=== PATIENT | female | born 1965 | race Caucasian/White ===

== ENCOUNTER 2018-02-10 08:21 | Outpatient (CLI) | payer BC ==
--- NOTE | 2018-02-10 09:31 | RAD ---
AIR CONTRAST UPPER GI: History: Dysphagia. Chest pain. Prior hernia surgery. FINDINGS: City Secretary chest radiograph shows small gas pocket just to the right of midline at the level of the diaphr agm. Air contrast upper GI shows post-operative changes at the GE junction consistent with prior meso fund oplication. A small hernia lies immediately to the right of the GE junction and fundoplication. There is a small amount of gastroesophageal reflux and prominent tertiary contractions of the esophagus. A 12 mm barium tablet showed approximately 5 minute holdup at the GE junction. The esophagus and stomach otherwise have a normal appearance. Visualized proximal small bowel is unre markable. IMPRESSION: 1. Small recurrent hiatal hernia just to the right of the fundoplication. 2. Persistent gastroesophageal reflux and prominent tertiary contractions of the esophagus. POS: [facility]
== END 2018-02-10 08:22 | disposition home or self-care (01) ==
LOC: RAD 08:21
PROVIDERS: ATTEND Specialist
DX: R13.10 Dysphagia, unspecified (principal); K44.9 Diaphragmatic hernia without obstruction or gangrene; K21.9 Gastro-esophageal reflux disease without esophagitis; K22.8 Other specified diseases of esophagus
CPT/HCPCS: 74247

== ENCOUNTER 2018-03-03 07:26 | Day surgery (SDC) | payer BC ==
[2018-03-02 15:23] VITALS: BMI 26.4
[2018-03-03] MEDS ORDERED: PROPOFOL 200 MG/20 ML VIAL ONE (16:58)
--- NOTE | 2018-03-03 17:23 | OP ---
DATE OF PROCEDURE: 03/03/2018 PROCEDURE PERFORMED: Esophagogastroduodenoscopy with balloon dilation and Maldonado dilation. PREMEDICATIONS: Given by Anesthesiology Department. PREPROCEDURE DIAGNOSES: 1. Dysphagia. 2. History of fundoplication with barium swallow demonstrating barium tablet hanging up at gastroesophageal junction. POSTOPERATIVE DIAGNOSES: 1. Small herniation of fundoplication. 2. Otherwise normal upper endoscopy. 3. Status post gastroesophageal junction, balloon dilation with 18-mm balloon and esophageal dilation with 54-Ivorian Maldonado dilator. PROCEDURE IN DETAIL: Written consents were obtained prior to procedure. After adequate sedation, forward viewing endoscope was advanced into the stomach under direct vision into the second portion of the duodenum. The duodenum appeared normal. The pylorus was patent. The gastric antrum, body, fundus, and cardia appeared normal. Retroflexion demonstrated a 360 degree fundoplication that appears to be intact. However, there was a small herniation of the fundoplication causing a small hernia sac. The Z-line was 35 cm. The mucosa appeared normal. The entire esophageal lumen appeared normal. Balloon dilation using 18 mm balloon was performed of 3 inflations lasting for 1 minute duration each. Final dilation was performed of the entire esophagus using a 54-Ivorian Maldonado. The patient tolerated the procedure well without any complications. ASSESSMENT: 1. Intact fundoplication with upward herniation of the wrap. 2. Status post gastroesophageal junction dilation with 18-mm balloon and esophageal dilation with 54-Ivorian Maldonado. PLAN: We will follow up to monitor swallowing progress. Job ID: [id number] MTDD
== END 2018-03-03 11:50 | disposition home or self-care (01) ==
LOC: SDC 07:26
PROVIDERS: ATTEND Internal Medicine Gastroenterology
PROC: 0D758ZZ Dilation of Esophagus, Via Natural or Artificial Opening Endoscopic (ICD-10-PCS; principal; 2018-03-03)
DX: R13.10 Dysphagia, unspecified (principal); K91.89 Other postprocedural complications and disorders of digestive system; K22.70 Barrett's esophagus without dysplasia; F99 Mental disorder, not otherwise specified; Z79.899 Other long term (current) drug therapy; Z88.1 Allergy status to other antibiotic agents; Z88.2 Allergy status to sulfonamides; Z88.8 Allergy status to other drugs, medicaments and biological substances; Z91.030 Bee allergy status; Z91.038 Other insect allergy status
CPT/HCPCS: J2704

== ENCOUNTER 2018-03-19 08:20 | Outpatient (CLI) | payer BC ==
--- NOTE | 2018-03-19 11:19 | RAD ---
BARIUM SWALLOW ESOPHAGRAM: HISTORY: Dysphagia. Recent esophageal dilatation. EXPOSURE: 2.1 minutes. 6.764 Gy per cm2. COMPARISON: 02/10/2018 FINDINGS: Initial spd manager radiograph demonstrates cervical fusion changes, incompletely evaluated. Normal cardia c silhouette. Pulmonary vessels and hilum are normal. Costophrenic angles are clear. No mass. No consolidation. Stable calcific granuloma in the right lung base. No pneumothorax or osseous abnorma lity. The cervical and thoracic esophagus have an overall normal caliber. There is a small diverticulum no kylie along the left aspect of the cervical esophagus, at approximately the C4-C5 level. There is rede monstration of a paraesophageal hiatal hernia. Intermittent reflux and tertiary contractions are red emonstrated. A standard, 13 mm barium tablet was administered and does appear to get hung up at the level of the G E junction. IMPRESSION: 1. Small diverticulum involving the left aspect of the cervical esophagus, at the C4-C5 level. 2. Redemonstration of a hiatal hernia, just to the right of the gastroesophageal junction/fundoplica tion. 3. Barium tablet does appear to get hung up at the gastroesophageal junction. 4. Persistent reflux and tertiary contractions of the esophagus. POS: [facility]
== END 2018-03-19 08:21 | disposition home or self-care (01) ==
LOC: RAD 08:20
PROVIDERS: ATTEND Internal Medicine Gastroenterology
DX: R13.10 Dysphagia, unspecified (principal); K57.10 Diverticulosis of small intestine without perforation or abscess without bleeding; K44.9 Diaphragmatic hernia without obstruction or gangrene; K21.9 Gastro-esophageal reflux disease without esophagitis; K22.8 Other specified diseases of esophagus
CPT/HCPCS: 74220

== ENCOUNTER 2018-05-20 16:13 | Outpatient (CLI) | payer BC ==
[2018-05-20 17:08] LABS: #Basophils 0.1 thou/uL (0.0-0.2); #Lymphocytes 2.2 thou/uL (1.20-3.40); #Monocytes 0.5 thou/uL (0.11-0.59); %Basophils 0.9 % (0.0-1.0); %Eosinophils 0.3 % (0.0-10.0); %Lymphocytes 32.3 % (21.0-51.0); %Monocytes 7.8 % (0.0-10.0); %Neutrophils 58.6 % (42.0-75.0); Hemoglobin 13.8 g/dL (12.0-16.0); Mean Corpuscular HGB CONC 32.8 g/dL (32.0-36.0); Mean Corpuscular Hemoglobin 30.4 pg (27.0-31.0); Mean Corpuscular Volume 92.6 fL (78.0-98.0); Mean Platelet Volume 7.3 fL (7.4-10.4); Platelet Count 274 thou/uL (130-400); Red Blood Cell (RBC) Count 4.55 mill/uL (4.20-5.40); White Blood Cell (WBC) Count 6.8 thou/uL (4.8-10.8)
[2018-05-20 17:34] LABS: Anion Gap 13 mmol/L (10-20); BUN (Urea Nitrogen) 15 mg/dL (9.8-20.1); Calc. Creatinine Clearance 0 mL/min (70-130); Carbon Dioxide 29 mmol/L (22-29); Chloride 102 mmol/L (98-107); Estimated GFR-MDRD 69; Glucose 90 mg/dL (70-105); Potassium 3.7 mmol/L (3.5-5.1); Sodium 140 mmol/L (136-145)
--- NOTE | 2018-05-21 16:59 | EKG ---
Test Reason : Blood Pressure : / mmHG Vent. Rate : 074 BPM Atrial Rate : 074 BPM P-R Int : 172 ms QRS Dur : 136 ms QT Int : 404 ms P-R-T Axes : 025 014 020 degrees QTc Int : 448 ms Normal sinus rhythm Right bundle branch block Abnormal ECG Confirmed by BRENDA ARDON ([id number]) on 05/21/2018 4:59:32 PM Referred By: FREEMAN Confirmed By:BRENDA ARDON
== END 2018-05-20 16:14 | disposition home or self-care (01) ==
LOC: LABBT 16:13
PROVIDERS: ATTEND Specialist
DX: Z01.818 Encounter for other preprocedural examination (principal); K44.9 Diaphragmatic hernia without obstruction or gangrene; R13.10 Dysphagia, unspecified
CPT/HCPCS: 80048; 85025; 93005; 93010

== ENCOUNTER 2018-05-27 07:26 | Inpatient (IN) | payer BC ==
[2018-05-20 16:21] VITALS: BMI 25.5
[2018-05-27] MEDS ORDERED: Ketorolac Tromethamine 30 MG/ML VIAL ONE (08:37)
[2018-05-27] MEDS ORDERED: Bupivacaine/Epinephrine 0.25% 30 ML VIAL ONE (09:08)
[2018-05-27] MEDS ORDERED: Fentanyl 250 MCG/5 ML VIAL ONE (09:16)
[2018-05-27] MEDS ORDERED: Fentanyl 100 MCG/2 ML VIAL ONE ×3 (13:03→14:56)
[2018-05-27] MEDS ORDERED: Promethazine HCl 25 MG/ML VIAL ONE (13:03)
[2018-05-27] MEDS ORDERED: D5 1/2 NS w/20 mEq KCL 1,000 ML ONE (13:39)
[2018-05-27] MEDS ORDERED: Dexamethasone 20 MG/5 ML VIAL ONE (14:24)
[2018-05-27] MEDS ORDERED: Ondansetron PF 4 MG/2 ML Vial ONE (14:24)
[2018-05-27] MEDS ORDERED: Glycopyrrolate 0.2 MG/ML 5 ML SYRINGE ONE (14:24)
[2018-05-27] MEDS ORDERED: Rocuronium Bromide 10 MG/ML (10ML VIAL) ONE (14:24)
[2018-05-27] MEDS ORDERED: PROPOFOL 200 MG/20 ML VIAL ONE (14:24)
[2018-05-27] MEDS ORDERED: PHENYLEPHRINE-NS 100 MCG/ML 10 ML SYRINGE ONE (14:24)
[2018-05-27] MEDS ORDERED: Promethazine HCl 25 MG/ML VIAL IM PRN (15:40)
[2018-05-27] MEDS ORDERED: Morphine 4 MG/ML VIAL SLOW IVP PRN (15:40)
[2018-05-27] MEDS ORDERED: hydrALAZINE 20 MG/ML VIAL SLOW IVP PRN (15:40)
[2018-05-27] MEDS: D5 1/2 NS w/20 mEq KCL 1,000 ML IV SCH (16:04)
[2018-05-27] MEDS: Morphine 4 MG/ML VIAL SLOW IVP PRN ×2 (16:53→19:50)
[2018-05-27] MEDS ORDERED: CYCLOBENZAPRINE 10 MG PO PRN (17:43)
[2018-05-27] MEDS ORDERED: NAPROXEN SOD PO PRN (18:00)
[2018-05-27] MEDS ORDERED: SUMATRIPTAN SUCC PO PRN (18:00)
[2018-05-27] MEDS: Ketorolac Tromethamine 30 MG/ML VIAL IVP SCH ×2 (18:05→23:09)
[2018-05-27] MEDS: Acetaminophen 1,000 MG in Premix Bag 1 BAG IVPB SCH ×2 (18:05→23:09)
[2018-05-27] MEDS: Famotidine/PF 20 mg/2ml Vial SLOW IVP SCH (20:00)
[2018-05-27] MEDS: Famotidine 20 MG TAB PO SCH (20:00)
[2018-05-27] MEDS ORDERED: Montelukast Sodium 10 mg Tablet PO SCH (21:00)
[2018-05-27] MEDS ORDERED: Enoxaparin Sodium 40 MG/0.4 ML SYRINGE SC SCH (21:00)
[2018-05-27] MEDS ORDERED: buPROPion 75 MG TAB PO SCH (21:00)
[2018-05-27] MEDS ORDERED: MONTELUKAST SODIUM 10 MG PO SCH (21:00)
[2018-05-27] MEDS ORDERED: ATORVASTATIN 10 MG PO SCH ×2 (21:00)
[2018-05-27] MEDS ORDERED: lamoTRIgine 100 MG TAB PO SCH (21:00)
[2018-05-27] MEDS ORDERED: MELATONIN 10 MG PO SCH (21:00)
[2018-05-27] MEDS: LAMOTRIGINE 200 MG PO SCH (21:53)
[2018-05-27] MEDS: BUPROPION 150 MG PO SCH (21:55)
[2018-05-27] MEDS: DOCUSATE SODIUM 100 MG PO SCH (21:57)
[2018-05-27] MEDS: Ondansetron PF 4 MG/2 ML Vial IVP PRN (22:14)
[2018-05-28] MEDS: D5 1/2 NS w/20 mEq KCL 1,000 ML IV SCH ×2 (00:25→08:21)
[2018-05-28] MEDS: HYDROcodone/Acetaminophen 7.5/325 mg Tablet PO PRN ×2 (02:11→13:22)
[2018-05-28] MEDS: Acetaminophen 1,000 MG in Premix Bag 1 BAG IVPB SCH ×2 (05:26→12:40)
[2018-05-28] MEDS: Ketorolac Tromethamine 30 MG/ML VIAL IVP SCH ×2 (05:26→12:41)
[2018-05-28 05:52] LABS: #Monocytes 1.2 thou/uL (0.11-0.59); #Neutrophils 10.1 thou/uL (1.40-6.50); %Basophils 0.2 % (0.0-1.0); %Eosinophils 0.2 % (0.0-10.0); %Lymphocytes 15.3 % (21.0-51.0); %Monocytes 8.6 % (0.0-10.0); %Neutrophils 75.6 % (42.0-75.0); Hemoglobin 12.6 g/dL (12.0-16.0); Mean Corpuscular HGB CONC 32.4 g/dL (32.0-36.0); Mean Corpuscular Hemoglobin 29.1 pg (27.0-31.0); Mean Corpuscular Volume 89.8 fL (78.0-98.0); Mean Platelet Volume 9.3 fL (7.4-10.4); Platelet Count 172 thou/uL (130-400); RBC Distribution Width 11.9 % (11.5-14.5); Red Blood Cell (RBC) Count 4.34 mill/uL (4.20-5.40); White Blood Cell (WBC) Count 13.3 thou/uL (4.8-10.8)
[2018-05-28 06:04] LABS: Anion Gap 14 mmol/L (10-20); BUN (Urea Nitrogen) 7 mg/dL (9.8-20.1); Calc. Creatinine Clearance 90 mL/min (70-130); Calcium 9.3 mg/dL (7.8-10.44); Carbon Dioxide 26 mmol/L (22-29); Chloride 102 mmol/L (98-107); Estimated GFR-MDRD Greater than 90; Glucose 141 mg/dL (70-105); Potassium 4.7 mmol/L (3.5-5.1); Sodium 137 mmol/L (136-145)
[2018-05-28] MEDS: Ondansetron PF 4 MG/2 ML Vial IVP PRN (06:13)
[2018-05-28] MEDS ORDERED: Loratadine 10 MG TAB PO SCH (09:00)
[2018-05-28] MEDS ORDERED: TRIAMTERENE PO SCH (09:00)
[2018-05-28] MEDS ORDERED: LORATADINE 10 MG PO SCH (09:00)
[2018-05-28] MEDS ORDERED: HCTZ PO SCH (09:00)
[2018-05-28] MEDS ORDERED: Triamterene/Hydrochlorothiazide 37.5 mg/25 mg Tablet PO SCH (09:00)
[2018-05-28] MEDS ORDERED: BIOTIN 10,000 MCG PO SCH (09:00)
[2018-05-28] MEDS: Famotidine 20 MG TAB PO SCH (09:40)
[2018-05-28] MEDS: DOCUSATE SODIUM 100 MG PO SCH (09:42)
[2018-05-28] MEDS: LAMOTRIGINE 200 MG PO SCH (09:42)
[2018-05-28] MEDS: BUPROPION 150 MG PO SCH (09:43)
[2018-05-28] MEDS: Famotidine/PF 20 mg/2ml Vial SLOW IVP SCH (09:45)
[2018-05-28 11:38] VITALS: BP 108/68; TEMP 97.8
--- NOTE | 2018-05-31 10:38 | OP ---
DATE OF PROCEDURE: 05/27/2018 PREOPERATIVE DIAGNOSES: Recurrent hiatal hernia with dysphagia. POSTOPERATIVE DIAGNOSES: Recurrent hiatal hernia with dysphagia (with intact wrap but wrap herniated up into the mediastinum). OPERATION PERFORMED: Repair of recurrent hiatal hernia with Quin fundoplication, mesh placement, and intraabdominal gastropexy. ANESTHESIA: General endotracheal. INDICATIONS: The patient is a 52-year-old female who had a large hiatal hernia repaired 6 years ago. Within the past 6 months, she has had recurrent symptoms and develops dysphagia. Endoscopy and contrast studies revealed evidence of recurrent hiatal hernia. She is taken to the operating room for repair of this. DESCRIPTION OF OPERATION: Informed consent was obtained. The patient was taken to the operating room where general endotracheal anesthesia was obtained with the patient in the supine position. Abdomen was prepped with ChloraPrep and draped in sterile fashion. Local anesthetic was infiltrated using 0.25% Marcaine with epinephrine at each incision site. A 5 mm supraumbilical incision was created at the prior incision site. Veress needle was passed into the abdominal cavity and pneumoperitoneum established with carbon dioxide up to a pressure of 15 mmHg. A 5 mm trocar port was passed through this incision and laparoscopic camera was passed through this port. Four additional ports were placed, all in the same places at the previous operation. These included bilateral subcostal 5 mm ports, a right epigastric 5 mm port and the left gparlotdsp73 mm port. The triangle retractor was placed through the right port and used to elevate the left lobe of the liver using the Robb's Arm. A recurrent hiatal hernia was easily visualized. There was surprisingly little scar tissue under the liver or at the hiatus. I was able to easily visualize the herniated tissue. Using meticulous dissection, I took down all adhesions between the stomach and the hiatus circumferentially at the level of the hernia. I then dissected up into the mediastinum, freeing the distal esophagus. The wrap appeared to be intact. The wrap was fully withdrawn into the abdominal cavity. The hernia sac primarily on the right side of the esophagus was excised. A size 50 bougie was placed through the esophagus into the stomach. With this in place, I decided to place one additional suture on the raptor to strengthen it with the inferior aspect. This was a gastrogastric suture, placed with 0 Bralon and secured with the tie knot. I then turned my attention to the hiatus. The hiatal defect was easily closed with approximation of the posterior crura with 2 interrupted sutures of 0 Bralon. This produced a nice approximation of the crura around the esophagus. I then obtained a sheet of pliable Strattice mesh. This was trimmed to a size of 6 x 4 cm and a curved notch was cut out superior aspect to allow for placement of the esophagus. The mesh was passed and positioned nicely around the posterior aspect of the esophagus. Therefore both sides of the esophagus. I sutured this initially with three sutures of 0 Bralon, one of these on each side of the hiatus sutured to the upper medial aspect of the mesh. I then placed one of the posterior aspect of the esophagus to the mesh cut out segment. Finally, Tisseel fibrin glue and placed this on the posterior aspect of the mesh bilaterally and on the inferior aspect to further secure it to the crura. The wrap was then secured to the hiatus at the 10:30 and 1:30 radian with simple interrupted sutures of 0 Bralon as collar suture fixation. This was to present wrap rotation. The area was expected and found to all be very appropriately approximated. There has never been any blood loss or complication with this portion. To further augment the procedure, I decided to perform an intraabdominal gastropexy. The site was selected on the left anterior abdominal wall and an 0 Ethibond suture was passed through the fascia using a GraNee needle and this was passed through a segment of the anterior surface of the greater curvature of the stomach at approximately mid stomach. GraNee needle so as to give a transfascial fixation. I decided to further augment this with a single suture that was placed intra-abdominally between the same segment of the stomach and the anterior aspect of the peritoneal and posterior fascia. This knot was tied extracorporeally. The gastropexy appeared to be intact and there was no blood loss at this location either. The fascial defect of the 11 mm port site was closed with 0 Vicryl suture using a GraNee needle. The triangle retractor was removed. Each port was removed under direct vision. Pneumoperitoneum was carefully evacuated. 0.25% Marcaine with epinephrine was infiltrated at each port site. Skin edges were approximated with 4-0 Monocryl subcuticular suture. Dermabond was placed externally. There were no complications. The patient tolerated the procedure well and was taken to recovery room in stable condition. Job ID: [id number]
== END 2018-05-28 14:45 | disposition home or self-care (01) | DRG 328 ==
LOC: SDC 07:26 → SURG A 15:25 → OBSVTOIN 15:25
PROVIDERS: ADMIT Specialist; ATTEND Specialist
PROC: 0BUT4JZ Supplement Diaphragm with Synthetic Substitute, Percutaneous Endoscopic Approach (ICD-10-PCS; principal; 2018-05-27)
PROC: 0DV44ZZ Restriction of Esophagogastric Junction, Percutaneous Endoscopic Approach (ICD-10-PCS; 2018-05-27)
DX: K44.9 Diaphragmatic hernia without obstruction or gangrene (principal); R13.10 Dysphagia, unspecified; F41.9 Anxiety disorder, unspecified; F31.9 Bipolar disorder, unspecified; Z96.652 Presence of left artificial knee joint; Z88.1 Allergy status to other antibiotic agents; Z88.8 Allergy status to other drugs, medicaments and biological substances; Z98.1 Arthrodesis status; Z90.710 Acquired absence of both cervix and uterus
CPT/HCPCS: 36415; 80048; 85025; J0131; J1100; J1650; J1885; J2270; J2405; J2550; J2704; J3010; Q4130

== ENCOUNTER 2019-05-18 05:22 | Observation (INO) | payer BC ==
[2019-05-18 05:46] LABS: #Lymphocytes 1.9 thou/uL (1.20-3.40); #Monocytes 0.6 thou/uL (0.11-0.59); #Neutrophils 3.9 thou/uL (1.40-6.50); %Basophils 0.6 % (0.0-1.0); %Eosinophils 0.2 % (0.0-10.0); %Lymphocytes 30.1 % (21.0-51.0); %Monocytes 8.7 % (0.0-10.0); %Neutrophils 60.3 % (42.0-75.0); Hemoglobin 14.1 g/dL (12.0-16.0); Mean Corpuscular HGB CONC 31.4 g/dL (32.0-36.0); Mean Corpuscular Hemoglobin 28.6 pg (27.0-31.0); Mean Corpuscular Volume 91.1 fL (78.0-98.0); Mean Platelet Volume 7.4 fL (7.4-10.4); Platelet Count 310 thou/uL (130-400); RBC Distribution Width 12.1 % (11.5-14.5); Red Blood Cell (RBC) Count 4.92 mill/uL (4.20-5.40); White Blood Cell (WBC) Count 6.4 thou/uL (4.8-10.8)
[2019-05-18 06:07] LABS: ALT (SGPT) 26 U/L (8-55); AST (SGOT) 20 U/L (5-34); Albumin 4.6 g/dL (3.5-5.0); Alkaline Phosphatase 121 U/L (40-110); Anion Gap 13 mmol/L (10-20); BUN (Urea Nitrogen) 15 mg/dL (9.8-20.1); Bilirubin, Total 0.3 mg/dL (0.2-1.2); CK (CPK) 78 U/L (29-168); Calc. Creatinine Clearance 0 mL/min (70-130); Calcium 9.6 mg/dL (7.8-10.44); Carbon Dioxide 30 mmol/L (22-29); Chloride 99 mmol/L (98-107); Estimated GFR-MDRD 73; Globulin 2.5 g/dL (2.4-3.5); Glucose 112 mg/dL (70-105); Lipase 32 U/L (8-78); Potassium 3.3 mmol/L (3.5-5.1); Protein, Total 7.1 g/dL (6.0-8.3); Sodium 139 mmol/L (136-145)
[2019-05-18] MEDS ORDERED: Aspirin 325 MG TAB ONE (06:08)
--- NOTE | 2019-05-18 08:01 | ULT ---
GALLBLADDER ULTRASOUND: COMPARISON: None. HISTORY: Epigastric abdominal pain radiating to the back. TECHNIQUE: Multiplanar, joe scale, and color Doppler images were obtained in a right upper quadrant abdominal u ltrasound. FINDINGS: The liver contains anechoic cysts measuring up to 1.7 cm in size. No intrahepatic biliary dilatation is seen. The liver demonstrates normal echogenicity. The gallbladder is normal without stones, sludge, gallbladder wall thickening, or pericholecystic flu id. The common bile duct is enlarged measuring 8 mm. The pancreas could not be visualized. The right kidney is normal in echogenicity without hydronephro sis or calculus and measures 9.1 cm in length. IMPRESSION: 1. Hepatic cysts. 2. Nonspecific enlargement of the common bile duct without evidence of cholelithiasis. POS: [facility]
[2019-05-18] MEDS ORDERED: Nitroglycerin 0.4 MG TAB (25 Tab Bottle) PO PRN (08:40)
--- NOTE | 2019-05-18 08:44 | RAD ---
CHEST 1 VIEW: HISTORY: Chest pain. COMPARISON: None. FINDINGS: Lungs are clear. No pneumothorax or effusion. Cardiac silhouette and mediastinal contours are withi n normal limits. There is likely gaseous distention of the stomach and much less likely free air und er the left hemidiaphragm. IMPRESSION: No acute intrathoracic abnormality. POS: [facility]
--- NOTE | 2019-05-18 08:56 | PDOC.HHP ---
Hospitalist HPI - History of Present Illness Chest pain History of Present Illness: PCP: Dr. Jamie Jang The patient is a 53/F with PMH significant for HLD presents for above complaint. Patient reports waking up and feeling nauseated around 0200. She ambulated to the bathroom and dry heaved. She then developed chest pain, radiating from her back to her mid sternum, describes as "vice-like", 8/10, exercerbated and relieved by nothing. She trialed a heating pad with no improvement of symptoms. She reports some associated SOB. She denies any heart palpitations, light headedness or diaphoresis. She denies any abdominal pain, pyrosis or vomiting. For this reason, she had her friend drive her to the ER. ED Course: EKG NSR with RBBB Trop negative CXR unremarkable RUQ US unremarkable Given ASA 325 mg Hospitalist ROS - Review of Systems Constitutional: denies: fever, chills, sweats, weakness, malaise, other Cardiovascular: reports: chest pain. denies: palpitations, edema, light headedness Gastrointestinal: reports: nausea. denies: vomiting, abdominal pain, diarrhea Genitourinary: denies: dysuria, frequency, hematuria Musculoskeletal: reports: back pain Skin: denies: rash, bruising Neurological: denies: weakness, incoordination, change in speech Hospitalist History - Past Medical History Source: patient Cardiac: reports: Hyperlipidemia Pulmonary: reports: no pertinent history TRIMMER HAND: reports: Migraine Gastrointestinal: reports: no pertinent history Heme/Onc: reports: no pertinent history Hepatobiliary: reports: no pertinent history Psych: reports: Bipolar Musculoskeletal: reports: Other (Cervical DJD) Rheumatologic: reports: no pertinent history Infectious Disease: reports: no pertinent history ENT: reports: Allergic rhinitis Renal/: reports: no pertinent history Endocrine: reports: no pertinent history Dermatology: reports: no pertinent history - Past Surgical History Past Surgical History: reports: Hysterectomy, Hernia Repair, Other (Cervical fusion) - Family History Family History: reports: no pertinent history - Social History Smoking Status: Never smoker Alcohol: reports: None Drugs: reports: none Living Situation: With Family Occupation: lives in [place] with spouse, works for [employer] Activity level: independent ambulation - Exam General Appearance: NAD, awake alert Heart: RRR, no murmur, no gallops, no rubs, normal peripheral pulses Respiratory: CTAB, no wheezes, no rales, no ronchi Gastrointestinal: soft, non-tender, non-distended, normal bowel sounds, no guarding, no rigidity Extremities: no cyanosis, no clubbing, no edema Extremities - other findings: UE/LE pulses equal bilaterally Skin: no lesions, no rashes Musculoskeletal: normal tone, normal strength Psychiatric: normal affect, A&O x 3 Hospitalist Results - Labs Result Diagrams: 05/18/19 05:30 05/18/19 05:30 Lab results: WBC 6.4 thou/uL (4.8-10.8) 05/18/19 05:30 Hgb 14.1 g/dL (12.0-16.0) 05/18/19 05:30 Hct 44.9 % (36.0-47.0) 05/18/19 05:30 MCV 91.1 fL (78.0-98.0) 05/18/19 05:30 Plt Count 310 thou/uL (130-400) 05/18/19 05:30 Neutrophils % 60.3 % (42.0-75.0) 05/18/19 05:30 Sodium 139 mmol/L (136-145) 05/18/19 05:30 Potassium 3.3 mmol/L (3.5-5.1) L 05/18/19 05:30 Chloride 99 mmol/L (98-107) 05/18/19 05:30 Carbon Dioxide 30 mmol/L (22-29) H 05/18/19 05:30 BUN 15 mg/dL (9.8-20.1) 05/18/19 05:30 Creatinine 0.82 mg/dL (0.6-1.1) 05/18/19 05:30 Glucose 112 mg/dL (70-105) H 05/18/19 05:30 Calcium 9.6 mg/dL (7.8-10.44) 05/18/19 05:30 Total Bilirubin 0.3 mg/dL (0.2-1.2) 05/18/19 05:30 AST 20 U/L (5-34) 05/18/19 05:30 ALT 26 U/L (8-55) 05/18/19 05:30 Alkaline Phosphatase 121 U/L (40-110) H 05/18/19 05:30 Creatine Kinase 78 U/L (29-168) 05/18/19 05:30 Troponin I Less than 0.010 ng/mL (< 0.028) 05/18/19 05:30 Serum Total Protein 7.1 g/dL (6.0-8.3) 05/18/19 05:30 Albumin 4.6 g/dL (3.5-5.0) 05/18/19 05:30 Lipase 32 U/L (8-78) 05/18/19 05:30 - EKG Interpretation EKG: NSR RBBB - Radiology Interpretation Chest x-ray Status: image reviewed by me US - abdomen Status: image reviewed by me Hospitalist H&P A/P - Plan Plan: Impression: Chest pain, R/O ACS Hypokalemia, mild HLD, chronic Bipolar, chronic, stable Migraines, chronic, stable Plan: Cardiac monitoring 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
[2019-05-18 08:57] LABS: Troponin I Less than 0.010 ng/mL (< 0.028)
[2019-05-18] MEDS ORDERED: Famotidine 20 MG TAB PO SCH ×2 (09:00→21:00)
[2019-05-18] MEDS ORDERED: Famotidine 20 MG TAB ONE (09:59)
[2019-05-18 12:07] LABS: Troponin I Less than 0.010 ng/mL (< 0.028)
[2019-05-18] MEDS ORDERED: Potassium Chloride 20 MEQ TAB PO SCH (14:00)
[2019-05-18 15:07] VITALS: BP 110/62; TEMP 97.8; BMI 25.1
--- NOTE | 2019-05-18 15:17 | NM ---
EXAM: CARDIAC SPECT WITH EF AND WALL MOTION 05/18/19 HISTORY: Chest pain. Concern for ACS, dyslipidemia. Exercise Sestamibi study performed using Desean protocol. Patient was injected with 27.8 millicuries technetium 99m Sestamibi intravenously for stress images. Patient was injected with 9.4 millicuries technetium 99m Sestamibi intravenously for resting images. SPECT images performed in the short axis, vertical long axis, and horizontal long axis. No scan evide nce for infarct or ischemia. TID 0.92. LHR 0.42. EDV 59 mL. EF 78%. Myocardial perfusion wall motion: Wall motion is normal. IMPRESSION: Unremarkable cardiac SPECT with EF and wall motion. POS: [facility]
--- NOTE | 2019-05-18 17:36 | DIS ---
DATE OF ADMISSION: 05/18/2019 DATE OF DISCHARGE: 05/18/2019 DISCHARGE DISPOSITION AND FOLLOWUP: The patient is going to be discharged home. The patient was seen and examined on the day of discharge. Denies any new complaints. INPATIENT CONSULTATIONS: None. BRIEF CLINICAL COURSE: The patient is a 53-year-old female with a past medical history significant for hyperlipidemia, who presented for acute onset of chest pain. In the ER, EKG was performed, found to be normal sinus rhythm with right bundle-branch block. First troponin was negative. Chest x-ray was negative for any acute cardiopulmonary process. Right upper quadrant ultrasound was done, impression, hepatic cyst, nonspecific enlarged common bile duct without evidence of cholelithiasis. The patient was admitted to the observation unit. She was placed on aspirin 325. The patient underwent a nuclear medicine cardio stress test. The nuclear medicine stress test was unremarkable, showed an EF of 78, no evidence of any infarct or ischemia, wall motion was normal. FINAL DIAGNOSES: 1. Chest pain, rule out acute coronary syndrome. 2. Hypokalemia, mild. Magnesium was checked and was 2, within normal limits, and the patient was given 40 mEq of potassium. 3. Hyperlipidemia, chronic, stable, the patient is on statin. 4. Bipolar, chronic, stable. 5. Migraines, chronic, stable. DISCHARGE MEDICATIONS: We will resume the patient's home medicines. The patient is to continue statin and aspirin. DISCHARGE INSTRUCTIONS: The patient to follow up with primary care provider in the next week. Job ID: [id number]
[2019-05-18] MEDS ORDERED: Loratadine 10 MG TAB PO SCH (21:00)
[2019-05-18] MEDS ORDERED: Atorvastatin Calcium 10 MG TAB PO SCH (21:00)
[2019-05-18] MEDS ORDERED: Melatonin 3 MG TAB PO SCH (21:00)
[2019-05-18] MEDS ORDERED: lamoTRIgine 100 MG TAB PO SCH (21:00)
[2019-05-18] MEDS ORDERED: buPROPion 75 MG TAB PO SCH (21:00)
--- NOTE | 2019-05-18 22:58 | PRG ---
DATE OF SERVICE: 05/18/2019 SUBJECTIVE: The patient is a 53-year-old female with hyperlipidemia, presented to the emergency room with chest discomfort that started around 2 a.m. along with nausea. In the emergency room, her EKG showed sinus rhythm. Troponins were negative. OBJECTIVE: VITAL SIGNS: Reviewed. LUNGS: Clear to auscultation bilaterally. HEART: S1, S2 present. Regular. ABDOMEN: Soft. Bowel sounds present. LABORATORY DATA: Her troponins were negative. She underwent a Cardiolite stress test that was negative for reversible ischemia. She is chest pain free at this time. A gallbladder ultrasound was negative for cholelithiasis. It showed some hepatic cyst. She is chest pain free at this time. PLAN: No changes in her medications were made. She will benefit from a repeat potassium check after 1 week. I agree with the note by nurse practitioner, Denilson Wesley. Job ID: [id number]
[2019-05-19] MEDS ORDERED: Aspirin 81 mg Enteric Coated Tablet PO SCH (09:00)
[2019-05-19] MEDS ORDERED: Montelukast Sodium 10 mg Tablet PO SCH (09:00)
[2019-05-19] MEDS ORDERED: Triamterene/Hydrochlorothiazide 37.5 mg/25 mg Tablet PO SCH (09:00)
[2019-05-19] MEDS ORDERED: Aspirin 325 mg Enteric Coated Tablet PO SCH (09:00)
== END 2019-05-18 17:24 | disposition home or self-care (01) ==
LOC: ERS 05:22 → ERHOLD 06:22 → 2SW 15:00
PROVIDERS: ADMIT Internal Medicine Sleep Medicine; ATTEND Internal Medicine Sleep Medicine
DX: R07.89 Other chest pain (principal); E87.6 Hypokalemia; E78.5 Hyperlipidemia, unspecified; F31.9 Bipolar disorder, unspecified; G43.909 Migraine, unspecified, not intractable, without status migrainosus; I45.10 Unspecified right bundle-branch block; K76.89 Other specified diseases of liver; Z79.899 Other long term (current) drug therapy; Z88.1 Allergy status to other antibiotic agents; Z88.2 Allergy status to sulfonamides; Z88.8 Allergy status to other drugs, medicaments and biological substances; Z91.038 Other insect allergy status; Z91.048 Other nonmedicinal substance allergy status
CPT/HCPCS: 36415; 71045; 76705; 78452; 80053; 82550; 83690; 83735; 84484; 85025; 93005; 93017; A9500; G0378

== ENCOUNTER 2020-03-14 17:31 | Emergency (ER) | payer BC ==
[2020-03-14 18:43] LABS: #Lymphocytes 0.5 thou/uL (1.20-3.40); #Monocytes 0.3 thou/uL (0.11-0.59); #Neutrophils 3.6 thou/uL (1.40-6.50); %Basophils 0.8 % (0.0-1.0); %Eosinophils 0.2 % (0.0-10.0); Hemoglobin 14.6 g/dL (12.0-16.0); Mean Corpuscular HGB CONC 33.9 g/dL (32.0-36.0); Mean Corpuscular Volume 88.6 fL (78.0-98.0); Platelet Count 262 thou/uL (130-400); RBC Distribution Width 11.4 % (11.5-14.5); Red Blood Cell (RBC) Count 4.86 mill/uL (4.20-5.40); White Blood Cell (WBC) Count 4.5 thou/uL (4.8-10.8)
[2020-03-14 18:57] LABS: ALT (SGPT) 17 U/L (8-55); AST (SGOT) 20 U/L (5-34); Albumin 4.2 g/dL (3.5-5.0); Alkaline Phosphatase 104 U/L (40-110); Anion Gap 14 mmol/L (10-20); BUN (Urea Nitrogen) 9 mg/dL (9.8-20.1); Bilirubin, Total 0.4 mg/dL (0.2-1.2); Calc. Creatinine Clearance 0 mL/min (70-130); Calcium 8.8 mg/dL (7.8-10.44); Carbon Dioxide 28 mmol/L (22-29); Chloride 94 mmol/L (98-107); Glucose 122 mg/dL (70-105); Potassium 3.2 mmol/L (3.5-5.1); Protein, Total 7.2 g/dL (6.0-8.3); Sodium 133 mmol/L (136-145)
--- NOTE | 2020-03-14 19:26 | RAD ---
CHEST ONE VIEW: 03/14/20 INDICATION: History of fatigue and COVID positive diagnosis. COMPARISON: Prior exam dated 05/18/19. FINDINGS: Lungs are clear. Heart size is normal. No pleural effusion or pneumothorax evident. No acute osseous abnormality is evident. There is an ACDF plate involving the lower cervical spine. IMPRESSION: No definite acute cardiopulmonary abnormality. POS: [facility]
--- NOTE | 2020-03-17 16:29 | EKG ---
Test Reason : Blood Pressure : / mmHG Vent. Rate : 072 BPM Atrial Rate : 072 BPM P-R Int : 140 ms QRS Dur : 138 ms QT Int : 406 ms P-R-T Axes : 066 014 -15 degrees QTc Int : 444 ms Normal sinus rhythm Non-specific intra-ventricular conduction block Right bundle branch block Baseline Artifact Present limits interpretation Abnormal ECG Confirmed by EDD ZHAO M.D. ([id number]), editor department SAADIA WADE ([id number]) on 03/17/2020 4:29:20 PM Referred By: Confirmed By:EDD ZHAO M.D.
== END 2020-03-14 21:10 | disposition home or self-care (01) ==
LOC: ERS 17:31
DX: U07.1 COVID-19 (principal); Z79.01 Long term (current) use of anticoagulants
CPT/HCPCS: 36415; 71045; 80053; 84484; 85025; 85379; 93005